=== PATIENT | female | born 1950 | race Caucasian/White ===

== ENCOUNTER → 2021-04-19 | Outpatient (CLI) | payer OTHER ==
[~2021-04-19] MED LIST: ADVAIR 100-501 EACH INH; ASPIRIN325 MG PO; COZAAR 25MG TAB25 MG PO; GLUCOPHAGE1000 MG PO; KLONOPIN TAB 00.5 MG PO; LEVEMIR100 UNIT/1 SQ; NORCO 10-325 T1 EACH PO; NOVOLOG100 UNIT/1 SQ; PROVENTIL HFA 61 INH INH; SINGULAIR10 MG PO
== END ==
LOC: ECHO 13:00
DX: I50.22 Chronic systolic (congestive) heart failure (principal); I44.7 Left bundle-branch block, unspecified; I08.1 Rheumatic disorders of both mitral and tricuspid valves
CPT/HCPCS: ECHO; 93306

== ENCOUNTER → 2021-06-14 | Outpatient (CLI) | payer OTHER ==
[2021-06-14 17:05] LABS: HEMOGLOBIN 10.7 gm/dl (12.3-15.3); RED BLOOD COUNT 3.79 M/UL (4.00-5.10); WHITE BLOOD COUNT 7.2 K/UL (4.5-11.0)
== END ==
LOC: LAB 16:10
PROVIDERS: Internal Medicine Cardiovascular Disease
DX: I25.5 Ischemic cardiomyopathy (principal); I10 Essential (primary) hypertension; I50.22 Chronic systolic (congestive) heart failure; I44.7 Left bundle-branch block, unspecified
CPT/HCPCS: 71046; 80048; 85025